=== PATIENT | female | born 1955 | race Caucasian/White ===

== ENCOUNTER → 2017-11-08 | Outpatient (CLI) | payer OTHER | LOC: FIMAGING 09:49 | PROVIDERS: ATTEND Family Medicine | DX: N60.01 Solitary cyst of right breast (principal) ==

== ENCOUNTER 2017-11-12 00:24 | Emergency (ER) | payer OTHER ==
--- NOTE | 2017-11-12 01:46 | EDPHY ---
H & P Stated Complaint: DIFFICULTY SWALLOWING HER PHLEGM AFTER COUGHING Time Seen by Provider: 11/12/17 01:09 HPI/ROS: HPI The patient presents with cough productive of phlegm with difficulty swallowing. The patient has had a cough for almost 40 years now which comes and goes. It is productive of a clear whitish phlegm. Sometimes she chokes on the phlegm and this happened tonight. This concerned her so she came into the emergency department. She says she has no difficulty eating solid food though when she drinks water she often times chokes on it immediately. She does not have any regurgitation or vomiting. She does not have any shortness of breath or chest pain. She has not been evaluated for this.. REVIEW OF SYSTEMS Constitutional: No fever, no chills. Eyes: No discharge. ENT: No sore throat. Cardiovascular: No chest pain, no palpitations. Respiratory: No cough, no shortness of breath. Gastrointestinal: No abdominal pain, no vomiting. Genitourinary: No hematuria. Musculoskeletal: No back pain. Skin: No rashes. Neurological: No headache. PMHx: Migraine headaches, primary care doctor is Dr. Sarabia Soc Hx: Lives with her , no history of smoking PHYSICAL General Appearance: Alert, no distress Eyes: Pupils equal and round no pallor or injection ENT, Mouth: Mucous membranes moist Respiratory: There are no retractions, lungs are clear to auscultation Cardiovascular: Regular rate and rhythm Gastrointestinal: Abdomen is soft and non-tender, no masses, bowel sounds normal Neurological: A&O, moves all extremities Skin: Warm and dry, no rashes Musculoskeletal: Neck is supple non tender Extremities: symmetrical, full range of motion Psychiatric: Patient is oriented X 3, there is no agitation Source: Patient Exam Limitations: No limitations - Personal History Current Tetanus/Diphtheria Vaccine: Unsure Current Tetanus Diphtheria and Acellular Pertussis (TDAP): Unsure Tetanus Vaccine Date: < 10 years - Medical/Surgical History Hx Asthma: No Hx Chronic Respiratory Disease: No Hx Diabetes: No Hx Cardiac Disease: No Hx Renal Disease: No Hx Cirrhosis: No Hx Alcoholism: No Hx HIV/AIDS: No Hx Splenectomy or Spleen Trauma: No Other PMH: migraines. surg-rt arm and toe - Social History Smoking Status: Never smoked Constitutional: Initial Vital Signs Temperature (C) 37.1 C 11/12/17 00:27 Heart Rate 79 04/17/18 00:27 Respiratory Rate 18 11/12/17 00:27 Blood Pressure 208/110 H 11/12/17 00:27 O2 Sat (%) 96 11/12/17 00:27 O2 Delivery Mode Room Air Allergies/Adverse Reactions: Sulfa (Sulfonamide Antibiotics) Allergy (Severe, Verified 11/12/17 00:30) Home Medications: Medication Instructions Recorded NK [No Known Home Meds] 11/12/17 Medical Decision Making - Diagnostics Imaging Results: Chest x-ray, two view shows no infiltrate, no cardiomegaly, interpreted by me, radiology interpretation is pending. Imaging: I viewed and interpreted images myself Differential Diagnosis: This is a 62-year-old female with a chronic cough productive of phlegm, now with difficulty swallowing phlegm tonight. She choked on it and this has induced further coughing. She on arrival is hypertensive though not hypoxic. She is not coughing currently. Her lungs sound clear. Her oral pharyngeal exam is unremarkable. She had a chest x-ray performed which is unremarkable. Differential diagnosis includes allergic rhinitis with postnasal drip, GERD, other possible stricture. I have advised her to sleep with head of bed elevated, use humidifier at night and start anti-histamine to see if this helps her sxs. If she is no better, she should follow up with ENT for further eval. She is in agreement with this plan. She will need to follow up with her PMD for her elevated blood pressure. Departure - Departure Disposition: Home, Routine, Self-Care Clinical Impression: Elevated blood pressure reading Choking due to phlegm Qualifiers: Encounter type: initial encounter Qualified Code(s): T17.310A - Gastric contents in larynx causing asphyxiation, initial encounter Condition: Good Instructions: Chronic Cough (ED) Additional Instructions: I would recommend that you start a medication such as Claritin or Zyrtec to see if this helps her cough. I would like for you to follow up with the Ear Nose and Throat doctor over the next few days. You should return to the emergency department if your worse in any way. Referrals: Bry Sarabia [Primary Care Provider] - As per Instructions Bry Hobson MD [Medical Doctor] - As per Instructions
[2017-11-12 02:11] VITALS: BP 188/104
== END 2017-11-12 02:11 | disposition home or self-care (01) ==
DX: T17.310A Gastric contents in larynx causing asphyxiation, initial encounter (principal); R03.0 Elevated blood-pressure reading, without diagnosis of hypertension; X58.XXXA Exposure to other specified factors, initial encounter; Y99.8 Other external cause status; Y93.89 Activity, other specified

== ENCOUNTER 2018-05-08 17:05 | Inpatient (IN) | payer OTHER ==
[2018-05-08] MEDS ORDERED: ASPIRIN 81 MG CHEWABLE TAB PO ONE (17:24)
--- NOTE | 2018-05-08 17:47 | EDPHY ---
H & P Time Seen by Provider: 05/08/18 17:19 HPI/ROS: HPI Chest pain. 62-year-old female by private vehicle with her . This patient reports onset of chest pain at 2:30 p.m. Today. She describes this as right-sided mid parasternal with radiation into her right shoulder and right upper arm. She describes it as an aching and pressure like sensation. She reports that she has had this pain to a lesser extent and duration over the last month intermittently. She has seen Dr. Isabella Parkinson of the Cardiology Service about a week ago. She had an EKG done but no blood work during that visit. She has been scheduled for an echocardiogram and provocative testing to be done in May. She came to the emergency department tonight because the pain was significantly worse. No associated shortness of breath. She does not have any family history of coronary artery disease. No diabetes, she does not smoke. She does have a history of hypertension. No known history of hyperlipidemia. ROS: Constitutional: No fever, no chills. No weakness. Eyes: No discharge. No changes in vision. ENT: No sore throat. No nasal congestion or rhinorrhea. Respiratory: No cough. No shortness of breath. Cardiac: As above, no palpitations. Gastrointestinal: No abdominal pain, no vomiting, no diarrhea. Genitourinary: No hematuria. No dysuria or increased frequency with urination. Musculoskeletal: No back pain. No neck pain. No myalgias or arthralgias. Skin: No rashes. Neurological: No headache. No focal weakness or altered sensation. Past medical history: Migraine headaches. As above. Social history: She is here with her . No alcohol. Nonsmoker. Physical Exam: General Appearance: Alert, no distress. This patient is responding to questions appropriately and in full sentences. This patient appears well- hydrated and well-nourished. Eyes: Pupils equal and round no pallor or injection. No lid edema, erythema or injection. Respiratory: There are no retractions, lungs are clear to auscultation with good air movement bilaterally. Cardiovascular: Regular rate and rhythm. No murmur. Gastrointestinal: Abdomen is soft and nontender, no masses, bowel sounds normal. No focal tenderness at McBurney's point. No Hood sign. Neurological: Motor sensory function is grossly intact. Cranial nerves are normal. Gait is normal. Skin: Warm and dry, no rashes. Musculoskeletal: Neck is supple and nontender. Extremities are symmetrical. All joints range without pain or impingement. Psychiatric: No agitation. No depression. Database: EKG: EKG time is 5:22 p.m.; EKG shows a narrow complex normal sinus rhythm with a ventricular rate of 66. Low voltage noted in the precordial leads. The NV, QRS , QT intervals are within normal limits. There are no ST-T wave changes indicative of ischemic or injury pattern. No evidence of right heart strain. Interpreted by me. EKG time is 6:51 p.m.; EKG shows a narrow complex normal sinus rhythm with a ventricular rate of 56. Low voltage in precordial leads noted. The NV, QRS, QT intervals are within normal limits. There are no ST-T wave changes indicative of ischemic or injury pattern. No evidence of right heart strain. Interpreted by me. Imaging: Chest x-ray AP portable; the cardiac mediastinal silhouette is unremarkable. No evidence of infiltrate or pneumothorax. No acute cardiopulmonary disease process noted. Interpreted by me. Procedures: Emergency department course: Triage vital signs were reviewed and are normal. Patient was placed on a osteopathic physician. IV placed. She was given 324 mg of chewed aspirin. EKG obtained and reviewed by myself. Heart score: 3. 6:20 p.m., patient re-evaluated. She is having some nausea at this time. She reports having a low level of chest pain as described above. She will be given 4 mg of Zofran and 0.4 mg of sublingual nitroglycerin. 500 cc of IV normal saline will be hung. If she has no response to nitroglycerin as far as pain relief she will be given small doses of IV fentanyl. Results of her diagnostic workup discussed with both her and her . I discussed plan for admission. They endorse. Hospitalist paged for admission. 6:40 p.m., spoke with hospitalist Dr. Ney Slaughter. Case discussed in detail. Patient accepted for admission to the hospitalist service telemetry observation. 7:00 p.m., patient re-evaluated. She had good relief with the sublingual nitroglycerin. She was given an additional 0.4 mg sublingual as needed. She is tolerating this medication well. Her remaining emergency department course under my care has been uneventful. She was admitted to telemetry in stable condition. Differential Diagnosis: The differential diagnosis on this patient includes but is not limited to acute coronary syndrome, esophageal spasm, pleurisy, other musculoskeletal pain. This represents a partial list of diagnoses considered. These considerations are based on history, physical exam, past history, reassessment and diagnostic testing. Smoking Status: Never smoked Constitutional: Initial Vital Signs Temperature (C) 36.7 C 05/08/18 17:12 Heart Rate 77 05/08/18 17:12 Respiratory Rate 18 05/08/18 17:12 Blood Pressure 138/80 H 05/08/18 17:12 O2 Sat (%) 95 05/08/18 17:12 O2 Delivery Mode Room Air O2 (L/minute) 1.5 Allergies/Adverse Reactions: Sulfa (Sulfonamide Antibiotics) Allergy (Severe, Verified 05/08/18 18:50) Other-Enter Comments Home Medications: Medication Instructions Recorded Bisoprolol Fumarate [Zebeta (*)] 5 mg PO DAILY 05/08/18 Losartan Potassium [Cozaar 50 mg 100 mg PO DAILY 05/08/18 (*)] Ondansetron Odt [Zofran Odt 4 mg 4 mg PO Q4H PRN 05/08/18 (*)] Topiramate [Topamax 25MG (*)] 25 mg PO DAILY 05/08/18 amLODIPine BESYLATE [Norvasc 10 mg 10 mg PO DAILY 05/08/18 (*)] Medical Decision Making - Diagnostics Imaging Results: Imaging Impressions Myocardial Perfusion Scan Nuc Med 05/09/18 10:00 Impression: There is no convincing scintigraphic evidence of myocardial ischemia. - Data Points Laboratory Results: Laboratory Results 05/09/18 03:40 05/09/18 03:40 05/09/18 03:40 Hemoglobin A1c 5.1 % % (4.0-6.0) Estim Average Glucose 100 mg/dL mg/dL (68-126) Microbiology Results: MICROBIOLOGY 05/08/18 19:48 Nasal, Sinus - Swab Respiratory Panel (PCR) - Final No Organism Detected Medications Given: Al Hydroxide/Mg Hydroxide (Maalox Susp) 30 ml PO Q4HRS PRN PRN Reason: Indigestion Stop: 11/04/18 20:46 Last Admin: 05/09/18 03:49 Dose: 30 ml Amlodipine Besylate (Norvasc) 10 mg PO DAILY [facility] Stop: 11/05/18 08:59 Last Admin: 05/09/18 07:57 Dose: 10 mg Aspirin Buffered (Aspirin Ec) 325 mg PO DAILY [facility] Stop: 11/05/18 08:59 Last Admin: 05/09/18 07:56 Dose: 325 mg Bisoprolol Fumarate (Zebeta) 5 mg PO DAILY [facility] Stop: 11/05/18 08:59 Last Admin: 05/09/18 07:56 Dose: 5 mg Dextrose/Sodium Chloride (D5w 1/2 Ns) 1,000 mls @ 100 mls/hr IV CONT [facility] Stop: 11/04/18 23:54 Last Admin: 05/09/18 09:10 Dose: 1,000 mls Losartan Potassium (Cozaar) 100 mg PO DAILY [facility] Stop: 11/05/18 08:59 Last Admin: 05/09/18 07:56 Dose: 100 mg Morphine Sulfate (Morphine) 1 - 2 mg IVP Q1HR PRN PRN Reason: Pain, Severe Unable to Take PO Stop: 05/18/18 19:01 Last Admin: 05/09/18 04:03 Dose: 2 mg Ondansetron HCl (Zofran) 4 mg IVP Q4HRS PRN PRN Reason: Nausea/Vomiting, Can't Take PO Stop: 11/04/18 19:01 Last Admin: 05/09/18 13:30 Dose: 4 mg Pantoprazole Sodium (Protonix) 40 mg PO DAILY [facility] Stop: 11/04/18 20:59 Last Admin: 05/09/18 07:57 Dose: 40 mg Topiramate (Topamax) 25 mg PO DAILY [facility] Stop: 11/05/18 08:59 Last Admin: 05/09/18 07:56 Dose: 25 mg Discontinued Medications Al Hydroxide/Mg Hydroxide (Maalox Susp) 30 ml PO ONCE ONE Stop: 05/09/18 12:31 Last Admin: 05/09/18 12:41 Dose: 30 ml Aspirin (Aspirin) 324 mg PO EDNOW ONE Stop: 05/08/18 17:25 Last Admin: 05/08/18 17:39 Dose: 324 mg Enoxaparin Sodium (Lovenox) 80 mg SC ONCE ONE Stop: 05/08/18 20:47 Last Admin: 05/08/18 22:07 Dose: 80 mg Fentanyl (Sublimaze) 25 mcg IVP EDNOW ONE Stop: 05/08/18 18:27 Last Admin: 05/09/18 00:11 Dose: Not Given Hyoscyamine Sulfate (Levsin, Hyomax-Sl) 0.25 mg PO ONCE ONE Stop: 05/09/18 12:31 Last Admin: 05/09/18 12:40 Dose: 0.25 mg Sodium Chloride (Ns) 500 mls @ 1,000 mls/hr IV EDNOW ONE PRN Reason: Protocol Stop: 05/08/18 18:57 Last Admin: 05/08/18 18:56 Dose: 500 mls Famotidine/Sodium Chloride (Pepcid 20 Mg (Premix)) 50 mls @ 200 mls/hr IV ONCE ONE Stop: 05/09/18 13:41 Last Admin: 05/09/18 13:40 Dose: 50 mls Lidocaine (Lidocaine 2% Viscous) 15 ml PO ONCE ONE Stop: 05/09/18 12:31 Last Admin: 05/09/18 12:41 Dose: 15 ml Nitroglycerin (Nitrostat) 0.4 mg SL Q5M PRN PRN Reason: Chest Pain Last Admin: 05/08/18 23:15 Dose: 0.4 mg Ondansetron HCl (Zofran) 4 mg IVP EDNOW ONE Stop: 05/08/18 18:27 Last Admin: 05/08/18 18:33 Dose: 4 mg Point of Care Test Results: Chemistry 05/08/18 17:44 POC Troponin I 0.00 ng/mL ng/mL (0.00-0.08) Departure - Departure Disposition: [facility] Acute Clinical Impression: Chest pain
[2018-05-08 18:02] LABS: PLATELET COUNT 243 10^3/uL (150-400)
[2018-05-08 18:25] LABS: INR 1.01 (0.83-1.16); PROTIME(PATIENT) 13.5 SEC (12.0-15.0)
[2018-05-08] MEDS ORDERED: ONDANSETRON 4 MG/2 ML VIAL IVP ONE (18:26)
[2018-05-08] MEDS ORDERED: fentaNYL 100 MCG/2 ML INJ IVP ONE (18:26)
[2018-05-08] MEDS ORDERED: NS 1,000 ML IV SCH (18:30)
[2018-05-08] MEDS: NITROGLYCERIN 0.4 MG BTL SL PRN ×3 (18:35→23:15)
[2018-05-08] MEDS: NS 500 ML IV ONE ×2 (18:37→18:56)
[2018-05-08] MEDS ORDERED: ONDANSETRON DISINTEGRATING 4 MG TAB PO PRN (19:02)
[2018-05-08] MEDS ORDERED: ACETAMINOPHEN 325 MG TAB PO PRN (19:02)
--- NOTE | 2018-05-08 19:06 | CPEKG ---
Test Reason : OPEN Blood Pressure : / mmHG Vent. Rate : 066 BPM Atrial Rate : 066 BPM P-R Int : 207 ms QRS Dur : 094 ms QT Int : 437 ms P-R-T Axes : -16 032 039 degrees QTc Int : 458 ms Sinus rhythm Low voltage, precordial leads Confirmed by Eric Pugh ([id number]) on 05/08/2018 7:06:17 PM Referred By: Confirmed By:Eric Pugh
--- NOTE | 2018-05-08 19:06 | CPEKG ---
Test Reason : OPEN Blood Pressure : / mmHG Vent. Rate : 056 BPM Atrial Rate : 055 BPM P-R Int : 214 ms QRS Dur : 089 ms QT Int : 458 ms P-R-T Axes : 013 028 043 degrees QTc Int : 443 ms Sinus rhythm Borderline prolonged DE interval Low voltage, precordial leads Confirmed by Eric Pugh ([id number]) on 05/08/2018 7:06:11 PM Referred By: Confirmed By:Eric Pugh
--- NOTE | 2018-05-08 20:40 | PDGENHP ---
History and Physical - Chief Complaint Acute chest pain - History of Present Illness Primary care provider: Formerly Dr. Sarabia Primary underwriting specialist: Dr. Parkinson HPI: 62-year-old female presents with acute chest pain located in the right substernal area radiating to her right shoulder characterized as aching, pressure-like sensation with onset of symptoms around 2:30 p.m. On the day of presentation after eating, with duration persistent and worsening thereafter. She reports that the pain escalated to an 8/10 and then was somewhat alleviated with sublingual nitroglycerin down to a 5/10. She also received aspirin. She reports that she has been experiencing this pain intermittently for at least 1 month and she has seen Dr. Parkinson for in the outpatient setting. Dr. Parkinson had recommended an echocardiogram as well as a stress test, and the patient had scheduled these for early May, although Dr. Parkinson had wanted to get them sooner. The patient denies any infectious symptoms and she does report some associated reflux, which has been evaluated on recent EGD, and the patient has not been adherent to proton pump inhibitor medication. History Information - Allergies/Home Medication List Allergies/Adverse Reactions: Sulfa (Sulfonamide Antibiotics) Allergy (Severe, Verified 05/08/18 18:50) Other-Enter Comments Home Medications: Bisoprolol Fumarate [Zebeta (*)] 5 mg PO DAILY 05/08/18 [Last Taken 05/08/18] Losartan Potassium [Cozaar 50 mg (*)] 100 mg PO DAILY 05/08/18 [Last Taken 05/08] Ondansetron Odt [Zofran Odt 4 mg (*)] 4 mg PO Q4H PRN 05/08/18 [Last Taken 05/08] Topiramate [Topamax 25MG (*)] 25 mg PO DAILY 05/08/18 [Last Taken 05/08/18] amLODIPine BESYLATE [Norvasc 10 mg (*)] 10 mg PO DAILY 05/08/18 [Last Taken 06/15] I have personally reviewed and updated: family history, medical history, social history, surgical history - Past Medical History Additional medical history: Persistent cough for 40 years. Migraine. Osteoarthritis. GERD - Surgical History Additional surgical history: EGD several months ago. Right arm. Toe - Family History Additional family history: Father with heart valve issues, mother with atrial fibrillation - Social History Smoking Status: Never smoked Alcohol Use: None Drug Use: None Additional social history: Independent in her ADLs raissa has not experienced any exertional chest pain recently, she has noted reduced exercise tolerance for the past 2 years Review of Systems Review of Systems: ROS: 10pt was reviewed & negative except for what was stated in HPI & below Cardiac: Reports: chest pain Gastrointestinal: Reports: other (Reflux) Physical Exam Physical Exam: Temp Pulse Resp BP Pulse Ox 36.5 C 56 L 20 121/71 H 100 05/08/18 20:12 05/08/18 20:12 05/08/18 20:12 05/08/18 20:12 05/08/18 20:12 O2 (L/minute) 2 Constitutional: no apparent distress, appears nourished, not in pain Eyes: PERRL, anicteric sclera, EOMI Ears, Nose, Mouth, Throat: moist mucous membranes, hearing normal, ears appear normal, no oral mucosal ulcers Cardiovascular: regular rate and rhythym, no murmur, rub, or gallop, No edema Respiratory: no respiratory distress, no rales or rhonchi, clear to auscultation Gastrointestinal: normoactive bowel sounds, soft, non-tender abdomen, no palpable masses Genitourinary: no bladder fullness, no bladder tenderness Musculoskeletal: other (No pectoralis muscle tenderness, full range of motion the bilateral shoulders without any pain elicited, mild crepitus in the right shoulder without tenderness over the right sub a.c.) Neurologic: AAOx3, sensation intact bilaterally, No weakness Psychiatric: interacting appropriately, not anxious, not encephalopathic, thought process linear Lab Data & Imaging Review 05/08/18 17:40 05/08/18 17:40 WBC 6.08 10^3/uL (3.80-9.50) 05/08/18 17:40 RBC 4.75 10^6/uL (4.18-5.33) 05/08/18 17:40 Hgb 14.7 g/dL (12.6-16.3) 05/08/18 17:40 Hct 41.0 % (38.0-47.0) 05/08/18 17:40 MCV 86.3 fL (81.5-99.8) 05/08/18 17:40 MCH 30.9 pg (27.9-34.1) 05/08/18 17:40 MCHC 35.9 g/dL (32.4-36.7) 05/08/18 17:40 RDW 12.2 % (11.5-15.2) 05/08/18 17:40 Plt Count 243 10^3/uL (150-400) 05/08/18 17:40 MPV 10.3 fL (8.7-11.7) 05/08/18 17:40 Neut % (Auto) 63.3 % (39.3-74.2) 05/08/18 17:40 Lymph % (Auto) 27.5 % (15.0-45.0) 05/08/18 17:40 [place] % (Auto) 6.4 % (4.5-13.0) 05/08/18 17:40 Eos % (Auto) 1.8 % (0.6-7.6) 05/08/18 17:40 Baso % (Auto) 0.8 % (0.3-1.7) 05/08/18 17:40 Nucleat RBC Rel Count 0.0 % (0.0-0.2) 05/08/18 17:40 Absolute Neuts (auto) 3.85 10^3/uL (1.70-6.50) 05/08/18 17:40 Absolute Lymphs (auto) 1.67 10^3/uL (1.00-3.00) 05/08/18 17:40 Absolute Monos (auto) 0.39 10^3/uL (0.30-0.80) 05/08/18 17:40 Absolute Eos (auto) 0.11 10^3/uL (0.03-0.40) 05/08/18 17:40 Absolute Basos (auto) 0.05 10^3/uL (0.02-0.10) 05/08/18 17:40 Absolute Nucleated RBC 0.00 10^3/uL (0-0.01) 05/08/18 17:40 Immature Gran % 0.2 % (0.0-1.1) 05/08/18 17:40 Immature Gran # 0.01 10^3/uL (0.00-0.10) 05/08/18 17:40 PT 13.5 SEC (12.0-15.0) 05/08/18 17:40 INR 1.01 (0.83-1.16) 05/08/18 17:40 APTT 26.8 SEC (23.0-38.0) 05/08/18 17:40 Sodium 143 mEq/L (135-145) 05/08/18 17:40 Potassium 4.0 mEq/L (3.3-5.0) 05/08/18 17:40 Chloride 107 mEq/L (97-110) 05/08/18 17:40 Carbon Dioxide 25 mEq/l (22-31) 05/08/18 17:40 Anion Gap 11 mEq/L (6-14) 05/08/18 17:40 BUN 11 mg/dL (7-23) 05/08/18 17:40 Creatinine 0.9 mg/dL (0.6-1.0) 05/08/18 17:40 Estimated GFR > 60 05/08/18 17:40 Glucose 125 mg/dL (70-100) H 05/08/18 17:40 Calcium 9.8 mg/dL (8.5-10.4) 05/08/18 17:40 POC Troponin I 0.00 ng/mL (0.00-0.08) 05/08/18 17:44 Troponin I < 0.012 ng/mL (0.000-0.034) 05/08/18 17:45 Visualized and Interpreted Chest x-ray results: Yes Chest X-Ray results: other (Mild peribronchial thickening) Visualized and Interpreted EKG results: Yes EKG Interpretation: Positive for: normal sinsus rhythm Assessment & Plan Assessment: 62-year-old female presents with acute chest pain Plan: 1. Chest pain. Acute, new problem this provider, further workup indicated. Potential etiologies include acute coronary syndrome versus gastroesophageal reflux disease, story is somewhat atypical given her prolonged nature of chest pain and negative cardiac biomarkers as well as completely unremarkable EKG and her known history of GERD with recent EGD, currently untreated -discussed with Dr. Robbin Puga, he has recommended that we give her therapeutic Lovenox, dose of IV morphine, gauge effect but hold off on nitroglycerin drip unless troponin becomes positive or she requires ongoing use of sublingual nitroglycerin overnight -will also empirically treat for possible GERD with proton pump inhibitor, Maalox and Tums as needed -monitor on telemetry -cycle cardiac enzymes -get treadmill EKG stress test in a.m., keep NPO for possible catheterization if stress positive or if troponin turned positive indicating ACS -will also get echocardiogram given her description of reduced exercise tolerance and no recent cardiac function evaluation with description of "abnormal valve" at [facility] many years ago 2. GERD. Reach trial of proton pump inhibitor as above 3. Cough. Reviewed outside records including 11/12/2017 emergency department report by Dr. Pallavi Jimenez, she reports the patient was experiencing a cough for 40 years that time without any insidious findings on exam or labs, recommended ENT follow-up, recommend the patient continue with this plan Diet. Regular, NPO after midnight Prophylaxis. Giving therapeutic Lovenox Code. Full Disposition. Anticipated discharge is 05/09, pending further workup as outlined above.
[2018-05-08] MEDS ORDERED: ENOXAPARIN 80 MG/0.8 ML SYR SC ONE (20:46)
[2018-05-08] MEDS ORDERED: MAG HYDROX/AL HYDROX/SIMETH 30 ML UDCUP PO PRN (20:47)
[2018-05-08] MEDS ORDERED: CALCIUM CARBONATE 500 MG CHEWABLE TAB PO PRN (20:47)
[2018-05-08] MEDS: PANTOPRAZOLE SODIUM 40 MG TAB PO SCH (22:08)
[2018-05-08] MEDS: D5W 1/2 NS 1,000 ML IV SCH (23:22)
[2018-05-09] MEDS: ONDANSETRON 4 MG/2 ML VIAL IVP PRN ×2 (04:07→13:30)
[2018-05-09 04:54] LABS: PLATELET COUNT 190 10^3/uL (150-400)
[2018-05-09] MEDS: ASPIRIN EC 325 MG TAB PO SCH (07:56)
[2018-05-09] MEDS: LOSARTAN POTASSIUM 50 MG TAB PO SCH (07:56)
[2018-05-09] MEDS: BISOPROLOL FUMARATE 5 MG TAB PO SCH (07:56)
[2018-05-09] MEDS: TOPIRAMATE 25 MG TAB PO SCH (07:56)
[2018-05-09] MEDS: PANTOPRAZOLE SODIUM 40 MG TAB PO SCH (07:57)
[2018-05-09] MEDS: D5W 1/2 NS 1,000 ML IV SCH (09:10)
--- NOTE | 2018-05-09 09:57 | ECHO ---
[email or web address] [address] [address] Main: [phone] Fax: Transthoracic Echocardiogram Name: SANDRA GARCIA MR#: [id number] Study Date: 05/09/2018 Study Time: 08:15 AM Date of : 1955 Age: 62 year(s) Height: 167.6 cm (66 in.) Weight: 78.93 kg (174 lb.) BSA: 1.89 m2 Gender: Female Examination: Echo Indication: Chest Pain, eval for pericarditis Image Quality: Adequate Contrast: Requested by: Cory Slaughter BP: 101 mmHg/61 mmHg Heart Rate: Rhythm: Indication: Chest Pain, eval for pericarditis Procedure Staff [employer] Press Operator: Emma Mccullough [facility] Reading Physician: Siddhartha Loza MD Requesting Provider: Conclusions: Normal global systolic LV function. EF is 61 %. Mild mitral valve regurgitation is present. Mild to moderate tricuspid valve regurgitation. Right ventricular systolic pressure measures 31mmHg. Measurements: Chambers Valvular Assessment AV/MV Valvular Assessment TV/PV Normal Normal Normal Name Value Range Name Value Range Name Value Range Ao Catina (MM): 3.2 cm (2.2 cm-3.7 AV Vmax: 1.15 m/s (1 m/s-1.7 TR Vmax: 2.57 mm/s ( - ) cm) m/s) TR PGmax: 26 mmHg ( - ) IVSd (2D): 0.9 cm (0.6 cm-1.1 AV maxP mmHg ( - ) syst. PAP: 31 mmHg ( - ) cm) LVOT Vmax: 0.74 m/s (0.7 m/s-1.1 PV Vmax: 0.66 m/s (0.6 m/s-0.9 LVDd (2D): 4.5 cm (3.9 cm-5.3 m/s) m/s) cm) RAHUL (Vmax): 2.2 cm2 ( - ) PV PGmax: 2 mmHg ( - ) LVDs (2D): 2.9 cm (2.1 cm-4 MV E Vmax: 0.66 m/s ( - ) cm) MV A Vmax: 0.53 m/s ( - ) LVPWd (2D): 0.9 cm ( - ) MV E/A: 1.25 ( - ) LVOTd 2.1 cm 2.1 cm mm LVEF (BP): 61 % (>=55 %) RVDd(2D): 3.2 cm (1.9 cm-3.8 cmmm) RADs transv.: 13.5 cm (2.9 cm-4.5 cm) Continued Measurements: Chambers Valvular Assessment AV/MV Valvular Assessment TV/PV Name Value Name Value Name Value Patient: SANDRA GARCIA Study Date: 05/09/2018 Page 1 of 2 08:15 AM LADs: 3.6 cm MV DecTime: 169 m/s CVP (est.): 5 mmHg LADs Lon.2 cm MV E' Septal: 0.07 m/s LA Area: 15.5 cm2 MV E/E' Septal: 9.20 LA Volume: 38 ml MV E/E' Lateral: 7.50 LA Volume Index: 20.1 ml/m2 MR Vena Contracta: 0.5 cm TAPSE: 2.7 cm RADs Tei-Index: 7.14 cm/m2 RA Area: 13.5 cm2 Additional Vessels Name Value Ao Ascendin.9 cm Findings: Left Ventricle: Normal size left ventricle. No LV hypertrophy. Normal global systolic LV function. EF is 61 %. No regional wall motion abnormality. Normal diastolic LV function. Right Ventricle: Normal size right ventricle. Normal RV function. Left Atrium: The left atrium is normal in size. Right Atrium: The right atrium is normal in size. Mitral Valve: There is mild thickening of the mitral valve leaflets. Mild mitral valve regurgitation is present. No mitral stenosis is present. Aortic Valve: The aortic valve is tri-leaflet and functions normally. There is no aortic valve regurgitation. No aortic valve stenosis is present. Tricuspid Valve: The tricuspid valve is normal in appearance and function. Mild to moderate tricuspid valve regurgitation. Right ventricular systolic pressure measures 31mmHg. The pulmonary artery pressure is normal. Pulmonic Valve: Pulmonary valve not well visualized. There is no pulmonic regurgitation seen. Aorta: Normal size aortic root measuring 3.2 cm. Normal size ascending aorta measuring 2.9 cm. IVC: Normal size and course of the IVC. Pericardium: No pericardial effusion. (No Signature Object) Patient: SANDRA GARCIA Study Date: 05/09/2018 Page 2 of 2 08:15 AM [id number]
[2018-05-09] MEDS ORDERED: REGADENOSON 0.4 MG/5 ML SYR IVP ONE (10:26)
--- NOTE | 2018-05-09 11:39 | CPR ---
DATE OF PROCEDURE: 05/09/2018 PROCEDURE: Lexiscan nuclear stress test. INDICATION: The patient is a 62-year-old female who presented to the hospital with 2 months of intermittent chest discomfort. Her discomfort became worse the day of admission. She woke with chest pain that radiated into her right shoulder, and therefore, she presented to the hospital. She is not very active , secondary to musculoskeletal pain, but did note some shortness of breath and occasional chest discomfort when walking up a flight of stairs. She feels like her chest discomfort is more related to difficulty catching her breath. Her risk factors for coronary artery disease, include hypertension. She denies any history of hyperlipidemia, diabetes, tobacco use, or premature family history of coronary artery disease. PROCEDURE: Consent was obtained and the patient was placed on continuous telemetry. Her resting EKG revealed sinus bradycardia with heart rate of 50. She has a first-degree AV block with a DE interval of 249. QRS duration is 77 with a QTc of 413. There were no ST-T wave changes to suggest ischemia on her resting EKG. The patient was infused with Lexiscan and complained of mild shortness of breath and flushing. She had 5/10 chest discomfort prior to the infusion. Her discomfort did progress slightly with the infusion. There were no ST, T wave changes to suggest ischemia. Her chest discomfort improved 3 minutes into the recovery phase without caffeine. Her blood pressure at rest was 108/76 and increased to 120/70 with the infusion. It returned to baseline within 3 minutes of recovery. Plan: Await nuclear images. /[id number]/MODL MTDD
--- NOTE | 2018-05-09 11:43 | ASMTCMCOM ---
CM Note CM Note Notes: Pts case discussed in tx rounds. Pt is a 62 y/o female admitted for chest pain. Pt had a lexiscan stress test today. Pt will most likely d/c independent when medically stable. No therapies ordered at this time. CM available for changes. Plan: Independent Date Signed: 05/09/2018 11:42 AM Electronically Signed By:YUDELKA Juarez
[2018-05-09] MEDS ORDERED: HYOSCYAMINE SULFATE 0.125 MG TAB PO ONE (12:30)
[2018-05-09] MEDS ORDERED: MAG HYDROX/AL HYDROX/SIMETH 30 ML UDCUP PO ONE (12:30)
[2018-05-09] MEDS ORDERED: LIDOCAINE 2% VISCOUS 15 ML UDCUP PO ONE (12:30)
[2018-05-09] MEDS ORDERED: FAMOTIDINE 20 MG/NACL 50 ML IV ONE (13:27)
--- NOTE | 2018-05-09 13:45 | HOSPPROG ---
Hospitalist Progress Note Assessment/Plan: Chest pain - suspect GI etiology. EKG non-ischemic, trops neg, stress test neg for signs of ischemia. Tried GI cocktail today, but she vomited and has vomited twice now. Thus, will keep another night, add IV Pepcid to Protonix and prn Zofran. If vomiting persists, may need to consider GI consult for EGD. -cont PPI, IV Pepcid for now -prn zofran GERD - as above, suspect this is source of symptoms Chronic cough - may be related to GERD Full code Dispo - change to inpt for ongoing treatment of pain and vomiting. Possible d/ c in am if symptoms improved Subjective: Pt continues to have 4-5/10 chest discomfort. She describes this as a "ball-like sensation" in her chest with occasional radiation to the left breast. She has h/o GERD, doesn't sound like she regularly takes an acid panda. No fevers/chills or SOB. Objective: Vital Signs Temp Pulse Resp BP Pulse Ox 36.7 C 57 L 18 117/69 96 05/09/18 11:45 05/09/18 11:45 05/09/18 11:45 05/09/18 11:45 05/09/18 11:45 Microbiology 05/08/18 19:48 Respiratory Panel (PCR) - Final Nasal, Sinus - Swab No Organism Detected Laboratory Results 05/09/18 03:40 05/09/18 03:40 05/08/18 05/09/18 05/10/18 05:59 05:59 05:59 Intake Total 1191 Output Total 1200 Balance -9 PT 13.5 SEC (12.0-15.0) 05/08/18 17:40 INR 1.01 (0.83-1.16) 05/08/18 17:40 - Physical Exam Constitutional: no apparent distress Eyes: PERRL Ears, Nose, Mouth, Throat: moist mucous membranes Cardiovascular: regular rate and rhythym Respiratory: no respiratory distress, clear to auscultation Gastrointestinal: normoactive bowel sounds, soft, non-tender abdomen Skin: warm Musculoskeletal: full muscle strength Neurologic: AAOx3 Psychiatric: interacting appropriately ICD10 Worksheet Patient Problems: Problems Problem Status Onset Chest pain Acute
--- NOTE | 2018-05-09 17:47 | PDMN ---
Medical Necessity Medical necessity: MCG: M370 vomiting: persistent req IV fluids post observation time period. status changed to INPT 05/09/18 for ongoing monitoring and tx of CP, vomiting, poss GI consult.
[2018-05-09] MEDS: FAMOTIDINE 20 MG/NACL 50 ML IV SCH (20:37)
[2018-05-10] MEDS: D5W 1/2 NS 1,000 ML IV SCH (08:23)
[2018-05-10] MEDS: FAMOTIDINE 20 MG/NACL 50 ML IV SCH (08:23)
[2018-05-10] MEDS: LOSARTAN POTASSIUM 50 MG TAB PO SCH (08:25)
[2018-05-10] MEDS: ASPIRIN EC 325 MG TAB PO SCH (08:25)
[2018-05-10] MEDS: BISOPROLOL FUMARATE 5 MG TAB PO SCH ×2 (08:26→09:49)
[2018-05-10] MEDS: PANTOPRAZOLE SODIUM 40 MG TAB PO SCH (08:26)
[2018-05-10] MEDS: TOPIRAMATE 25 MG TAB PO SCH (08:26)
[2018-05-10 11:19] VITALS: BP 115/60
--- NOTE | 2018-05-10 13:04 | GDS ---
DIAGNOSES: 1. Chest pain, likely gastrointestinal, with negative stress testing. 2. Gastroesophageal reflux disease. 3. Chronic cough. 4. Hypertension. 5. Mild bradycardia, likely from bisoprolol. 6. Migraines. 7. Osteoarthritis. 8. History of previous kidney stones. PROCEDURES DONE: 1. Abdominal/pelvic CT without contrast showing no evidence of kidney stones. 2. Myocardial perfusion scan, negative for ischemia. 3. Echocardiogram showing normal left ventricular function. HOSPITAL COURSE: The patient is a 62-year-old with the above past medical history, who comes in with chest pain. This was associated with some nausea and vomiting. In her central chest, radiating to the left breast. She was monitored on telemetry. She ruled out for acute ischemia with serial enzym es and had a myocardial perfusion test which was negative for ischemia. She had ongoing pain so was admitted an additional night for treatment with proton pump inhibitors, Pepcid, and the next morning she is feeling much better. She still had some tenderness in the right lower quadrant. An abdominal and pelvic CT showed negative kidney stones. However, I am curious if she possibly has gallstones a s a cause of her pain. At this time, she is stable for discharge without any evidence of cardiac dis ease. She is feeling better. CONDITION ON DISCHARGE: Good. Vital signs are stable. She is mildly bradycardic with a heart rate of 50, which is asymptomatic. This can be addressed as an outpatient probably with adjusting some of her medications. DISCHARGE MEDICATIONS: Please see discharge medication list. In addition to her home meds, she was started on Protonix daily. FOLLOWUP INSTRUCTIONS: She is to establish care with a new provider as Dr. Sarabia has left. She saloni l follow up in the next week. She should probably get another evaluation for possible gallstones as the etiology of her pain and continue the proton pump inhibitor for possible GI pain for the next few weeks to see if this helps both her cough and her pain. Total time spent on patient on day of discharge and coordination of care is 35 minutes. /[id number]/MODL
== END 2018-05-10 14:20 | disposition home or self-care (01) | DRG 313 ==
LOC: F2W 19:55 → OBSVTOIN 05-09 13:44
PROVIDERS: ADMIT Internal Medicine; ATTEND Internal Medicine
DX: R07.89 Other chest pain (principal); K21.9 Gastro-esophageal reflux disease without esophagitis; R05 Cough; I10 Essential (primary) hypertension; R00.1 Bradycardia, unspecified; G43.909 Migraine, unspecified, not intractable, without status migrainosus; M19.90 Unspecified osteoarthritis, unspecified site
CPT/HCPCS: 84484-PO; 96374; A9500; G0378; J1650; J2270; J2405; J2785

== ENCOUNTER → 2018-11-01 | Outpatient (CLI) | payer OTHER | LOC: FIMAGING 10:01 | PROVIDERS: ATTEND Family Medicine | DX: Z12.31 Encounter for screening mammogram for malignant neoplasm of breast (principal) ==

== ENCOUNTER → 2018-11-04 | Outpatient (CLI) | payer OTHER | LOC: FIMAGING 12:22 | PROVIDERS: ATTEND Family Medicine | DX: M54.2 Cervicalgia (principal); M54.5 Low back pain; M47.892 Other spondylosis, cervical region; M47.894 Other spondylosis, thoracic region; M51.37 Other intervertebral disc degeneration, lumbosacral region ==

== ENCOUNTER → 2018-11-17 | Outpatient (CLI) | payer OTHER | LOC: FIMAGING 18:32 | PROVIDERS: ATTEND Family Medicine | DX: M47.22 Other spondylosis with radiculopathy, cervical region (principal) ==

== ENCOUNTER → 2018-11-30 | Outpatient (CLI) | payer OTHER | LOC: FIMAGING 07:38 | PROVIDERS: ATTEND Family Medicine | DX: M51.37 Other intervertebral disc degeneration, lumbosacral region (principal); M48.07 Spinal stenosis, lumbosacral region; M53.82 Other specified dorsopathies, cervical region ==